=== PATIENT | male | born 1990 | race Caucasian/White ===

== ENCOUNTER 2017-04-17 07:58 | Emergency (ER) | payer MEDICAID ==
[~2017-04-17] VITALS: Ht 175.3 cm; Wt 73.0 kg
[2017-04-17 07:59] VITALS: BP 125/76
== END 2017-04-17 08:51 | disposition home or self-care (01) ==
LOC: ED 08:45
DX: K08.89 Other specified disorders of teeth and supporting structures (principal)
CPT/HCPCS: 99283

== ENCOUNTER 2019-10-15 21:06 | Emergency (ER) | payer OTHER ==
[~2019-10-15] VITALS: Ht 170.2 cm; Wt 85.3 kg
[2019-10-15 21:08] VITALS: BP 141/84
--- NOTE | 2019-10-15 21:27 | NUR ---
rpd at bedside at this time.
--- NOTE | 2019-10-15 21:50 | NUR ---
edmd at bedside to evaluate at this time.
--- NOTE | 2019-10-15 23:16 | NUR ---
Patient given discharge instructions and they have confirmed that they understand the instructions. Patient ambulatory with steady gait.
== END 2019-10-15 23:18 | disposition home or self-care (01) ==
LOC: ED 22:06
DX: S42.032A Displaced fracture of lateral end of left clavicle, initial encounter for closed fracture (principal); V49.49XA Driver injured in collision with other motor vehicles in traffic accident, initial encounter; Y93.89 Activity, other specified; Y92.89 Other specified places as the place of occurrence of the external cause; Y99.8 Other external cause status
CPT/HCPCS: 99283